=== PATIENT | male | born 1995 | race Caucasian/White ===

== ENCOUNTER 2017-04-05 13:37 | Emergency (ER) | payer OTHER ==
[~2017-04-05] VITALS: Ht 180.3 cm; Wt 67.0 kg
[2017-04-05 13:44] VITALS: BP 127/74; PULSE 111; RESP 17; TEMP 100.7; O2SAT 96
[2017-04-05] MEDS ORDERED: PIPERACIL-TAZO 4.5 GM PREMIX 100 ML IV STA (14:00)
[2017-04-05] MEDS ORDERED: ACETAMINOPHEN 325 MG TAB PO ONE (14:00)
[2017-04-05] MEDS ORDERED: SODIUM CHLOR 0.9% 1000 ML INJ 1,000 ML IV ONE (14:00)
[2017-04-05] MEDS ORDERED: CLINDAMYCIN INJ 900 MG in SODIUM CHLORIDE 0.9% INJ 100 ML IV STA (14:00)
--- NOTE | 2017-04-05 14:06 | PD ---
HPI Chief Complaint: Skin Problem Time Seen by Provider: 14:00 Travel History International Travel<30 days: No Contact w/Intl Traveler<30days: No Traveled to known affect area: No History of Present Illness HPI 21-year-old male with history of no significant past medical issues, presents to the ER today because he states that he accidentally kicked a tree stump 2-3 days ago with his left leg, had an abrasion that area, and since then the areas become red, swollen, tender, and he has run fevers. He denies any other issues or injuries. He denies any previous history of problems with infections. Modifying Factors: None Associated Signs & Symptoms: Left leg abrasion followed by redness, swelling, fevers Risk Factors: None PFSH Social History Tobacco Use: No Allergies-Medications (Allergen,Severity, Reaction): Coded Allergies: No Known Allergies (Unverified , 04/05/17) Reported Meds & Prescriptions Reported Meds & Active Scripts Active No Active Prescriptions or Reported Medications Review of Systems Except as stated in HPI: all other systems reviewed are Neg Physical Exam Narrative GENERAL: Well-developed young white male patient currently in mild distress. Awake and oriented 3. SKIN: Focused skin assessment warm/dry. There is a 2-3 cm area of abrasion, underlying fluctuance, erythema, and tenderness on the left anterior brady area close to the high ankle. There is notable erythema of the lower part of the left leg. HEAD: Atraumatic. Normocephalic. EYES: Pupils equal and round. No scleral icterus. No injection or drainage. ENT: No nasal bleeding or discharge. Mucous membranes pink and moist. NECK: Trachea midline. No JVD. CARDIOVASCULAR: Regular rate and rhythm. No murmur appreciated. RESPIRATORY: No accessory muscle use. Clear to auscultation. Breath sounds equal bilaterally. GASTROINTESTINAL: Abdomen soft, non-tender, nondistended. Hepatic and splenic margins not palpable. MUSCULOSKELETAL: No obvious deformities. No clubbing. No cyanosis. No edema. NEUROLOGICAL: Awake and alert. No obvious cranial nerve deficits. Motor grossly within normal limits. Normal speech. PSYCHIATRIC: Appropriate mood and affect; insight and judgment normal. Data Data Last Documented VS Vital Signs Date Time Temp Pulse Resp B/P Pulse Ox O2 Delivery O2 Flow Rate FiO2 04/05/17 14:24 100.0 100 18 127/74 100 Room Air Orders Complete Blood Count With Diff (04/05/17 14:00) Comprehensive Metabolic Panel (04/05/17 14:00) Lactic Acid Sepsis Protocol (04/05/17 14:00) Blood Culture (04/05/17 14:00) Blood Glucose (04/05/17 14:00) Ecg Monitoring (04/05/17 14:00) Iv Access Insert/Monitor (04/05/17 14:00) Oximetry (04/05/17 14:00) Oxygen Administration (04/05/17 14:00) Acetaminophen (Tylenol) (04/05/17 14:00) Piperacil-Tazo 4.5 Gm Premix (Zosyn 4.5 (04/05/17 14:00) Clindamycin Inj (Cleocin Inj) (04/05/17 14:00) Sodium Chlor 0.9% 1000 Ml Inj (Ns 1000 M (04/05/17 14:00) Labs Laboratory Tests Test 04/05/17 14:13 White Blood Count 15.9 TH/MM3 Red Blood Count 4.59 MIL/MM3 Hemoglobin 13.4 GM/DL Hematocrit 39.4 % Mean Corpuscular Volume 85.8 FL Mean Corpuscular Hemoglobin 29.3 PG Mean Corpuscular Hemoglobin 34.1 % Concent Red Cell Distribution Width 12.7 % Platelet Count 241 TH/MM3 Mean Platelet Volume 7.9 FL Neutrophils (%) (Auto) 76.1 % Lymphocytes (%) (Auto) 13.3 % Monocytes (%) (Auto) 7.7 % Eosinophils (%) (Auto) 2.1 % Basophils (%) (Auto) 0.8 % Neutrophils # (Auto) 12.2 TH/MM3 Lymphocytes # (Auto) 2.1 TH/MM3 Monocytes # (Auto) 1.2 TH/MM3 Eosinophils # (Auto) 0.3 TH/MM3 Basophils # (Auto) 0.1 TH/MM3 CBC Comment DIFF FINAL Differential Comment Sodium Level 137 MEQ/L Potassium Level 3.6 MEQ/L Chloride Level 102 MEQ/L Carbon Dioxide Level 27.1 MEQ/L Anion Gap 8 MEQ/L Blood Urea Nitrogen 6 MG/DL Creatinine 0.82 MG/DL Estimat Glomerular Filtration 119 ML/MIN Rate Random Glucose 91 MG/DL Lactic Acid Level 1.4 mmol/L Calcium Level 8.8 MG/DL Total Bilirubin 0.6 MG/DL Aspartate Amino Transf 14 U/L (AST/SGOT) Alanine Aminotransferase 16 U/L (ALT/SGPT) Alkaline Phosphatase 62 U/L Total Protein 8.3 GM/DL Albumin 4.2 GM/DL MDM Medical Decision Making Medical Screen Exam Complete: Yes Emergency Medical Condition: Yes Medical Record Reviewed: Yes Interpretation(s) Laboratory Tests Test 04/05/17 14:13 White Blood Count 15.9 TH/MM3 (4.0-11.0) Neutrophils (%) (Auto) 76.1 % (16.0-70.0) Neutrophils # (Auto) 12.2 TH/MM3 (1.8-7.7) Monocytes # (Auto) 1.2 TH/MM3 (0-0.9) Blood Urea Nitrogen 6 MG/DL (7-18) Aspartate Amino Transf 14 U/L (15-37) (AST/SGOT) Total Protein 8.3 GM/DL (6.4-8.2) Differential Diagnosis Left leg abscess versus cellulitis versus sepsis Narrative Course Patient's leg abscess was drained by [facility], please see PA note for further details. There was significant amount of pus released. I suspect that this is causing his underlying cellulitis and I suspect that she get better with Dr. tim. IV antibiotics had been given in the ER. Lab work does show some leukocytosis. At this point, I have talked to the patient regarding findings and have talked about admitting the patient versus very close follow-up and antibiotics by mouth. Patient states that he does not want to stay if at all possible and I have talked him about the very importance of returning for follow -up within a few days for wound check and packing removal and to go get by mouth antibiotics tonight. Return for any worsening in pain, fevers, redness, and as needed. The plan has been discussed with him and he states understanding. Diagnosis Primary Impression: Abscess of left leg Additional Impression: Left leg cellulitis Med/Other Pt SpecificInfo: Prescription(s) given Scripts Clindamycin (Cleocin)300 Mg Yes985 Mg PO Q8H 7 Days Ref 0 Prov:Gonzalo Garcia MD 04/05/17 Sulfamethoxazole-Trimethoprim (Bactrim DS)800-160 Mg Tab1 Tab PO BID #14 TAB Ref 0 Prov:Gonzalo Garcia MD 04/05/17 Ibuprofen (Motrin Ib)200 Mg [id number] Mg PO QID PRN (PAIN SCALE 1 TO 10) #20 Prov:Gonzalo Garcia MD 04/05/17 Disposition: 01 DISCHARGE HOME Condition: Stable Gonzalo Garcia MD Apr 05, 2017 14:06
[2017-04-05 14:19] VITALS: O2SAT 100
[2017-04-05 14:24] VITALS: BP 127/74; PULSE 100; RESP 18; TEMP 100; O2SAT 100
[2017-04-05 14:41] LABS: AUTOMATED NEUTROPHIL # 12.2 TH/MM3 (1.8-7.7); BASOPHIL # 0.1 TH/MM3 (0-0.2); BASOPHIL % 0.8 % (0.0-2.0); CHLORIDE 102 MEQ/L (98-107); EOSINOPHIL # 0.3 TH/MM3 (0-0.4); EOSINOPHIL % 2.1 % (0.0-4.0); HEMATOCRIT 39.4 % (39.0-51.0); HEMO FLAGS DIFF FINAL; LYMPH % 13.3 % (9.0-44.0); LYMPHOCYTE # 2.1 TH/MM3 (1.0-4.8); MEAN CELL VOLUME 85.8 FL (80.0-100.0); MEAN CORPUSCULAR HEMOGLOBIN 29.3 PG (27.0-34.0); MEAN CORPUSCULAR HGB CONC 34.1 % (32.0-36.0); MONO % 7.7 % (0.0-8.0); NEUT % 76.1 % (16.0-70.0); PLATELET COUNT 241 TH/MM3 (150-450); POTASSIUM 3.6 MEQ/L (3.5-5.1); RED BLOOD COUNT 4.59 MIL/MM3 (4.50-5.90); RED CELL DISTRIBUTION WIDTH 12.7 % (11.6-17.2); SODIUM (NA) 137 MEQ/L (136-145); WHITE BLOOD COUNT 15.9 TH/MM3 (4.0-11.0)
[2017-04-05 14:45] LABS: ANION GAP 8 MEQ/L (5-15); BICARBONATE 27.1 MEQ/L (21.0-32.0)
[2017-04-05 14:46] LABS: BLOOD UREA NITROGEN 6 MG/DL (7-18)
[2017-04-05 14:48] LABS: ALT (GPT) 16 U/L (12-78); AST (GOT) 14 U/L (15-37)
[2017-04-05 14:49] LABS: GLOMERULAR FILTRATION RATE 119 ML/MIN (>89)
[2017-04-05 14:50] LABS: TOTAL BILIRUBIN ADULT 0.6 MG/DL (0.2-1.0)
[2017-04-05 14:51] LABS: ALKALINE PHOSPHATASE 62 U/L (45-117)
[2017-04-05] MEDS ORDERED: BACT800T5 PO (15:03)
[2017-04-05] MEDS ORDERED: IBUP-1129 PO (15:03)
[2017-04-05] MEDS ORDERED: CLEO300C2 PO (15:03)
[2017-04-05 15:25] VITALS: BP 143/73; PULSE 89; RESP 16; O2SAT 99
--- NOTE | 2017-04-05 15:37 | PD ---
Physical Exam Narrative I was asked by attending physician to perform I&D on left lower extremity. Please see patient's full note for further details. Incision and drainage: The area was prepped with Betadine. 2 cc of 1% lidocaine with epi infiltrated to the area of fluctuance. #11 blade used to make a small incision. A large amount of purulent drainage expressed. The wound was packed with iodoform. A sterile dressing placed. Patient tolerated procedure well. Data Data Last Documented VS Vital Signs Date Time Temp Pulse Resp B/P Pulse Ox O2 Delivery O2 Flow Rate FiO2 04/05/17 15:25 89 16 143/73 99 Room Air 04/05/17 14:24 100.0 Orders Complete Blood Count With Diff (04/05/17 14:00) Comprehensive Metabolic Panel (04/05/17 14:00) Lactic Acid Sepsis Protocol (04/05/17 14:00) Blood Culture (04/05/17 14:00) Blood Glucose (04/05/17 14:00) Ecg Monitoring (04/05/17 14:00) Iv Access Insert/Monitor (04/05/17 14:00) Oximetry (04/05/17 14:00) Oxygen Administration (04/05/17 14:00) Acetaminophen (Tylenol) (04/05/17 14:00) Piperacil-Tazo 4.5 Gm Premix (Zosyn 4.5 (04/05/17 14:00) Clindamycin Inj (Cleocin Inj) (04/05/17 14:00) Sodium Chlor 0.9% 1000 Ml Inj (Ns 1000 M (04/05/17 14:00) Labs Laboratory Tests Test 04/05/17 14:13 White Blood Count 15.9 TH/MM3 Red Blood Count 4.59 MIL/MM3 Hemoglobin 13.4 GM/DL Hematocrit 39.4 % Mean Corpuscular Volume 85.8 FL Mean Corpuscular Hemoglobin 29.3 PG Mean Corpuscular Hemoglobin 34.1 % Concent Red Cell Distribution Width 12.7 % Platelet Count 241 TH/MM3 Mean Platelet Volume 7.9 FL Neutrophils (%) (Auto) 76.1 % Lymphocytes (%) (Auto) 13.3 % Monocytes (%) (Auto) 7.7 % Eosinophils (%) (Auto) 2.1 % Basophils (%) (Auto) 0.8 % Neutrophils # (Auto) 12.2 TH/MM3 Lymphocytes # (Auto) 2.1 TH/MM3 Monocytes # (Auto) 1.2 TH/MM3 Eosinophils # (Auto) 0.3 TH/MM3 Basophils # (Auto) 0.1 TH/MM3 CBC Comment DIFF FINAL Differential Comment Sodium Level 137 MEQ/L Potassium Level 3.6 MEQ/L Chloride Level 102 MEQ/L Carbon Dioxide Level 27.1 MEQ/L Anion Gap 8 MEQ/L Blood Urea Nitrogen 6 MG/DL Creatinine 0.82 MG/DL Estimat Glomerular Filtration 119 ML/MIN Rate Random Glucose 91 MG/DL Lactic Acid Level 1.4 mmol/L Calcium Level 8.8 MG/DL Total Bilirubin 0.6 MG/DL Aspartate Amino Transf 14 U/L (AST/SGOT) Alanine Aminotransferase 16 U/L (ALT/SGPT) Alkaline Phosphatase 62 U/L Total Protein 8.3 GM/DL Albumin 4.2 GM/DL MDM Supervised Visit with ANGE: Yes Diagnosis Primary Impression: Abscess of left leg Additional Impression: Left leg cellulitis Referrals: NO PRIMARY CARE PHYSICIAN (PCP) Primary Care Physician call for appointment Patient Instructions: General Instructions, Cellulitis (ED), Abscess (ED) Departure Forms: Tests/Procedures Scripts Clindamycin (Cleocin)300 Mg [id number] Mg PO Q8H 7 Days Ref 0 Prov:Gonzalo Garcia MD 04/05/17 Sulfamethoxazole-Trimethoprim (Bactrim DS)800-160 Mg Tab1 Tab PO BID #14 TAB Ref 0 Prov:Gonzalo Garcia MD 04/05/17 Ibuprofen (Motrin Ib)200 Mg [id number] Mg PO QID PRN (PAIN SCALE 1 TO 10) #20 Prov:Gonzalo Garcia MD 04/05/17 Disposition: 01 DISCHARGE HOME Condition: Stable Beata Rubio Apr 05, 2017 15:37
== END 2017-04-05 16:39 | disposition home or self-care (01) ==
LOC: PHED 13:37
DX: L02.416 Cutaneous abscess of left lower limb (principal); L03.116 Cellulitis of left lower limb; W22.8XXA Striking against or struck by other objects, initial encounter; Y93.89 Activity, other specified; Y92.9 Unspecified place or not applicable
CPT/HCPCS: 80053; 83605; 85025; 87040; 96365; 96367; 99284; J2543; J7030